=== PATIENT | female | born 1970 | race Caucasian/White ===

== ENCOUNTER 2020-01-01 12:14 | Emergency (ER) | payer OTHER, SELFPAY ==
--- NOTE | ~2020-01-01 | CT_ITS ---
EXAMINATION: CT brain wo con DATE: 01/01/2020 13:24 INDICATION: Head injury. Headache. TECHNIQUE: Computed tomography (CT) of the head was performed without intravenous contrast. The mA wa s adjusted according to patient size. Iterative reconstruction technique was employed. The dose-lengt h product was 605.33 mGy-cm. COMPARISON: Head CT 05/10/2010 FINDINGS: There is no intracranial hemorrhage, acute infarction, or abnormal intracranial mass lesion . The ventricles are normal in size. The paranasal sinuses are clear. The orbits are normal. The mast oid air cells are normal. IMPRESSION: 1. Normal brain. Reviewed, dictated and finalized at location A. IMPRESSION: 1. Normal brain.
--- NOTE | ~2020-01-01 | CT_ITS ---
EXAMINATION: CT cervical spine wo con DATE: 01/01/2020 13:25 INDICATION: Head injury. Neck pain. TECHNIQUE: Computed tomography (CT) of the cervical spine was performed without intravenous contrast. Automated exposure control and iterative reconstruction technique were employed. The dose-length pro duct was 371.73 mGy-cm. COMPARISON: None FINDINGS: There is hypolordosis of cervical spine. Vertebral body heights are normal. There are hess es of anterior fusion procedure from C5 to C7 with discectomies and healed interbody bone graft. Ther e is mildly decreased disc height at C2-C3, moderately decreased disc height at C3-C4, and severely d ecreased disc height at C4-C5. The osseous central spinal canal is developmentally small from C3 to C 7. The following disc levels are specifically discussed: C2-C3: There is mild bilateral uncovertebral joint osteoarthritis. There is mild right facet joint os teoarthritis. There is ankylosis of left facet joint with moderate hypertrophy. There is mild left ne ural foraminal stenosis. There is no central canal stenosis. C3-C4: There is moderate and severe left uncovertebral joint osteoarthritis. There is moderate right and mild left facet joint osteoarthritis. There is mild bilateral neural foraminal stenosis. There is mild central canal stenosis. C4-C5: There is severe bilateral uncovertebral joint osteoarthritis. There is moderate bilateral face t joint osteoarthritis. There is moderate bilateral neural foraminal stenosis. There is mild central canal stenosis. C5-C6: There is no uncovertebral joint hypertrophy. There is ankylosis of the facet joints without hy pertrophy. There is no neural foraminal stenosis. There is mild central canal stenosis. C6-C7: There is no uncovertebral joint hypertrophy. There is ankylosis of the facet joints without hy pertrophy. There is no neural foraminal stenosis. There is mild central canal stenosis. C7-T1: There is mild bilateral uncovertebral joint osteoarthritis. There is severe bilateral facet adeel int osteoarthritis. There is mild left neural foraminal stenosis. There is no central canal stenosis. IMPRESSION: 1. No fracture. 2. Severe cervical spondylosis. 3. Anterior fusion procedure from C5 to C7. Reviewed, dictated and finalized at location A.
[2020-01-01 12:21] VITALS: BP 140/73; PULSE 89; RESP 18; TEMP 36.1; O2SAT 94
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
[2020-01-01] MEDS: IBUPROFEN 600 MG TABLET PO (13:31)
[2020-01-01 14:25] VITALS: BP 128/81; PULSE 68; RESP 18; TEMP 36.5; O2SAT 100
== END 2020-01-01 14:27 | disposition home or self-care (01) ==
PROVIDERS: Emergency Provider Emergency Medicine; PCP Family Medicine
DX: S09.90XA Unspecified injury of head, initial encounter (principal); M06.9 Rheumatoid arthritis, unspecified; M47.812 Spondylosis without myelopathy or radiculopathy, cervical region; Z98.1 Arthrodesis status; W18.39XA Other fall on same level, initial encounter
CPT/HCPCS: 70450; 72125; 99284; A9270

== ENCOUNTER → 2021-05-25 00:44 | Outpatient (CLI) | payer OTHER, SELFPAY ==
[2021-05-25 17:06] LABS: SARS-CoV-2 RNA PCR Negative
== END ==
PROVIDERS: PCP Family Medicine; Visit Provider Internal Medicine Gastroenterology
DX: Z01.812 Encounter for preprocedural laboratory examination (principal); Z20.822 Contact with and (suspected) exposure to COVID-19
CPT/HCPCS: C9803; U0003; U0005

== ENCOUNTER 2021-05-28 00:17 | Day surgery (SDC) | payer OTHER, SELFPAY ==
[2021-05-14 13:28] VITALS: BMI 33.5
[2021-05-28 07:23] VITALS: BMI 32.8
[2021-05-28 07:26] VITALS: BP 107/84; PULSE 80; RESP 18; TEMP 35.4; O2SAT 100
[2021-05-28] MEDS: LACTATED RINGERS 1,000 ML 150 ML IV CONT (07:30)
--- NOTE | 2021-05-28 07:54 | WPDANESEPPF ---
Anes - Initial Pre Proc Eval Procedure: Operation Date: 05/28/21 08:30 Proposed Procedures p Screening Colonoscopy - Freeman Dumont MD Date/Time: 05/28/21 07:54 Surgeon: Freeman Dumont MD Pre Op Diagnosis: family hx colon ca, hx of colon polyps Patient Data Age: 51 Gender: F Height: 1.7 m Weight: 95 kg Last Vital Signs Temp 35.4 C L 05/28/21 07:26 Pulse 80 05/28/21 07:26 Resp 18 05/28/21 07:26 BP 107/84 05/28/21 07:26 Pulse Ox 100 05/28/21 07:26 Allergies Allergy/AdvReac Type Severity Reaction Status Date / Time No Known Allergies Allergy Mild Verified 05/28/21 07:20 Home Medications Medication Instructions Recorded Confirmed Type celecoxib 200 mg PO DAILY 05/28/21 05/28/21 History folic acid 1 mg PO DAILY 05/28/21 05/28/21 History Patient hx anesthesia problems: none Family hx anesthesia problems: none PMFSH Past Medical History Medical History (Updated 05/28/21 @ 07:56 by Freeman Dumont MD) Overeating Positive BRITTNI (antinuclear antibody) Rheumatoid arthritis Surgical History Surgical History (Updated 05/28/21 @ 07:55 by Margarito Cook MD) History of gastric surgery Family History Family History Father Cerebrovascular accident Mother Cerebrovascular accident Sibling Patient's sister is in good health Patient's brother is in good health Social History Social History Smoking packs per day: 0.5 Smoking cigarettes per day: 10.0 Years smoked: 10 Smoking pack-years: 5.00 Smoking status: Former smoker Tobacco type: cigarettes Second hand tobacco smoke exposure: No Alcohol intake: never Alcohol use details: rarely Substance use: never Substance use type: does not use Living arrangements: with family Gender identity (if verbalized by the patient): Female Spiritual care concerns: No Anes - Eval Final PreProcedure Day of Procedure 05/28/21 07:54 Patient weight: obese Heart: regular rate and rhythm Lungs: clear to auscultation Airway: Mallampati scale class II Neurological: alert and oriented Last oral intake: >/= 8 hours ASA classification: II Emergent: no Anesthetic plan: proceed Anesthesia type and monitoring: general GIVS and standard monitoring Informed Consent: The patient's anesthetic plan and its attendant risks and benefits were discussed with the patient/family/POA. Questions were solicited and answers provided to the satisfaction of the patient/family/POA.
--- NOTE | 2021-05-28 07:56 | PM.HPGS ---
History of Present Illness History of Present Illness Consent: Risks, benefits, and alternatives have been discussed and questions answered. Patient agrees to proceed with procedure. Chief complaint: family hx colon ca, hx of colon polyps Narrative: Becca Thurston is a 51 year old female here for colon cancer screening. She has a family history of colon cancer Review of Systems Review of Systems: All systems reviewed & are unremarkable except as noted in HPI and below PMFSH Past Medical History Medical History Overeating Positive BRITTNI (antinuclear antibody) Rheumatoid arthritis Surgical History Surgical History History of gastric surgery Family History Family History Father Cerebrovascular accident Mother Cerebrovascular accident Sibling Patient's sister is in good health Patient's brother is in good health Social History Social History Smoking packs per day: 0.5 Smoking cigarettes per day: 10.0 Years smoked: 10 Smoking pack-years: 5.00 Smoking status: Former smoker Tobacco type: cigarettes Second hand tobacco smoke exposure: No Alcohol intake: never Alcohol use details: rarely Substance use: never Substance use type: does not use Living arrangements: with family Gender identity (if verbalized by the patient): Female Spiritual care concerns: No Meds Home Medications and Allergies Home Medications Medication Instructions Recorded Confirmed Type celecoxib 200 mg PO DAILY 05/28/21 05/28/21 History folic acid 1 mg PO DAILY 05/28/21 05/28/21 History Allergies Allergy/AdvReac Type Severity Reaction Status Date / Time No Known Allergies Allergy Mild Verified 05/28/21 07:20 Vital Signs Vital Signs - 24 hr 05/28/21 07:26 Temperature 35.4 C L Pulse Rate 80 Respiratory Rate 18 Blood Pressure 107/84 Pulse Oximetry 100 Exam Const: General: alert Orientation/consciousness: patient oriented x3 Resp: Auscultation: clear to auscultation bilaterally Cardio: Rhythm: regular rhythm GI: GI Palp: Yes Soft to palpation and No Tenderness to palpation present (GI) Neuro: General: patient oriented x3 Assessment and Plan Assessment and plan (1) Colon cancer screening: Code(s): Z12.11 - Encounter for screening for malignant neoplasm of colon Status: Acute Assessment and Plan: Colonoscopy with possible biopsy or polypectomy or cautery or injection of substances.
[2021-05-28 08:57] VITALS: BP 120/91; PULSE 68; RESP 17; O2SAT 98
[2021-05-28 09:07] VITALS: BP 123/75; PULSE 63; RESP 17; O2SAT 98
[2021-05-28 09:17] VITALS: BP 124/80; PULSE 64; RESP 17; O2SAT 99
== END 2021-05-28 09:22 | disposition home or self-care (01) ==
PROVIDERS: PCP Family Medicine; Visit Provider Internal Medicine Gastroenterology
PROC: 0DJD8ZZ Inspection of Lower Intestinal Tract, Via Natural or Artificial Opening Endoscopic (ICD-10-PCS; CPT 45378; principal; 2021-05-28 08:30)
DX: Z12.11 Encounter for screening for malignant neoplasm of colon (principal); Z80.0 Family history of malignant neoplasm of digestive organs; M06.9 Rheumatoid arthritis, unspecified; Z87.891 Personal history of nicotine dependence; E66.9 Obesity, unspecified; Z68.32 Body mass index [BMI] 32.0-32.9, adult
CPT/HCPCS: 45378; C9803; J2704; J7120; U0003; U0005

== ENCOUNTER → 2023-10-10 07:09 | Outpatient (CLI) | payer OTHER, SELFPAY ==
--- NOTE | ~2023-10-10 | XR_ITS ---
Left Knee Technique: AP, lateral, and sunrise views were obtained. Clinical History: Arthritis Findings: No fracture or dislocation is seen. Osseous alignment is anatomic. Joint spaces are preserv ed without degenerative or erosive change. Soft tissues are unremarkable. No joint effusion is seen. Impression: Unremarkable left knee radiographs. Reviewed, dictated and finalized at location . SION NURSE Impression: Unremarkable left knee radiographs.
== END ==
PROVIDERS: PCP Family Medicine; Visit Provider Internal Medicine
DX: M06.09 Rheumatoid arthritis without rheumatoid factor, multiple sites (principal); G47.00 Insomnia, unspecified; Z79.899 Other long term (current) drug therapy
CPT/HCPCS: 73562

== ENCOUNTER 2023-10-28 13:01 | Outpatient (CLI) | payer OTHER, SELFPAY ==
[2023-10-28 15:02] LABS: Influenza A QL RT-PCR Negative (Negative); Influenza B QL RT-PCR Negative (Negative); RSV RNA, RT-PCR Negative (Negative); SARS-CoV-2 RNA PCR Negative (Negative)
== END 2023-10-28 13:02 | disposition home or self-care (01) ==
LOC: ANHLAB 13:02
PROVIDERS: PCP Family Medicine; Visit Provider Physician Assistant
DX: R05.9 Cough, unspecified (principal); Z20.822 Contact with and (suspected) exposure to COVID-19
CPT/HCPCS: 87637

== ENCOUNTER 2023-10-28 15:51 | Outpatient (CLI) | payer OTHER, SELFPAY ==
--- NOTE | ~2023-10-28 | XR_ITS ---
XR chest 2V DATE: 10/28/2023 16:05 INDICATION: Cough TECHNIQUE: PA and lateral views COMPARISON: None FINDINGS: Normal heart size. No hilar or mediastinal enlargement. No pulmonary infiltrate or consolid ation, pleural effusion or pulmonary vascular congestion or pneumothorax is detected. Postoperative change of the abdomen. IMPRESSION: No active cardiopulmonary disease Reviewed, dictated and finalized at location B. HOLOGICAL ANTHROPOLOGIST
== END 2023-10-28 15:52 | disposition home or self-care (01) ==
PROVIDERS: PCP Family Medicine; Visit Provider Family Medicine
DX: R05.9 Cough, unspecified (principal)
CPT/HCPCS: 71046; 87637

== ENCOUNTER 2024-07-30 16:16 | Outpatient (CLI) | payer OTHER, SELFPAY ==
--- NOTE | ~2024-07-30 | XR_ITS ---
XR sacrum coccyx min 2V Ordering provider: Aurora Greene, [place] History: . Chronic coccyx pain . Comparison: None. FINDINGS: BONES: No acute fracture or dislocation. Postoperative changes in the lower lumbar area. JOINTS: The sacroiliac joint spaces are normal. Bilateral hip osteoarthritic changes. SOFT TISSUES: Soft tissues are normal. IMPRESSION: No definite acute osseous abnormality sacrum and coccyx. If still suspicious CT is advised. Reviewed, dictated and finalized at location A.
== END 2024-07-30 16:17 | disposition home or self-care (01) ==
PROVIDERS: PCP Chiropractor; Visit Provider Chiropractor
DX: M53.3 Sacrococcygeal disorders, not elsewhere classified (principal)
CPT/HCPCS: 72220

== ENCOUNTER 2025-01-13 16:28 | Emergency (ER) | payer OTHER, SELFPAY ==
--- OUTSIDE RECORDS SUMMARY | 2025-01-13 16:31 | XMS_ITS | Clinical Summary ---
Author Organization [facility] Address [address] [place] [address] Care Team Providers Care Instruments Sales Representative Name Role Phone Jackie Barney MD Primary Care Provider Unknown, Notinfile Unavailable Unavailable Allergies Active Allergy Reactions Criticality Noted Date Comments Sutures Other (See comments) Low 06/12/2024 Monocryl sutures Medications pantoprazole DR (PROTONIX) 40 mg EC tablet 05/24/2023 Active methotrexate 2.5 mg tablet 01/11/2024 Activ e PlaqueniL 200 mg tablet 08/24/2023 Active folic acid (FOLVITE) 1 mg tablet 01/11/[address] (VOLTAREN) 75 mg EC tablet 1 tablet (75 mg total) as needed 05/24/2023 Active estradioL (VIVELLE-DOT) 0.0375 mg/24 hrIndications:M enopausal symptoms Place 1 patch on the skin 2 (two) times a week 24 patch 4 03/15/2024 Active progesterone (PROMETRIUM) 100 mg capsuleIndicati ons:Menopausal symptoms Take 1 capsule (100 mg total) by mouth daily 90 capsule 4 03/14/2024 Active estradioL (VIVELLE-DOT) 0.0375 mg/24 hr 06/10/2024 Act carmela folic acid (FOLVITE) 1 mg tablet 04/10/2024 Active methotrexate 2.5 mg tablet 06/10/[address] (PROTONIX) 40 mg EC tablet 03/06/2024 Active progesterone (PROMETRIUM) 100 mg capsule 06/10/2024 Acti ve loratadine (CLARITIN) 10 mg tablet Take 1 tablet (10 mg total) by mouth daily Active cholecalciferol (VITAMIN D-3) 5,000 unit tablet Active omega-3 fatty acids 1,000 mg capsule Take by mouth Active Active Problems Problem Noted Date Diagnosed Date History of rheumatoid arthritis 06/22/2019 Assessment & Plan (06/25/2019 1:50 PM CDT): She requests rheumatology follow-up to discuss alternatives to methotrexate given likelihood of viral recurrence with MTX. - Pt prefers to hold off MTX, wants to see Rheum and ambulatory referral placed. Assessment & Plan (06/24/2019 9:54 AM CDT): Methotrexate on hold She requests rheumatology follow-up to discuss alternatives to methotrexate given likelihood of viral recurrence with MTX. Assessment & Plan (06/23/2019 10:58 AM CDT): Methotrexate on hold Assessment & Plan (06/22/2019 9:44 AM CDT): Recently started on methotrexate by her primary doctor. She tried to get her Zoster vaccination but was turned away since she wasn't 50y.o. - holding methotrexate Assessment & Plan (06/22/2019 5:49 AM CDT): Recently started on methotrexate by her primary doctor. She tried to get her Zoster vaccination but was turned away since she wasn't 50y.o. 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 - Negative CSF cultures, negative HSV/VZV CSF PCR studies. - D/w ID Fellow, stop all ABX, including ACV and d/c home with out pt f/u. -D/w pt at bedside, agreed. Assessment & Plan (06/24/2019 9:53 AM CDT): Await VZV PCR Continue IV acyclovir IV vancomycin + ceftriaxone empirically Assessment & Plan (06/23/2019 10:58 AM CDT): Await HSV/VZV PCR Continue IV acyclovir IV vancomycin + ceftriaxone empirically Assessment & Plan (06/23/2019 2:20 PM CDT): Neck pain, headache, fatigue, chills x ~10d. Developing ulcers on L face. Now with L ear pain + dizziness. Rapid HIV negative, LFTs wnl. LP with gluc 47, prot 46, nucs 704, RBCs 5, 98% lymphs. CSF results are most consistent with viral meningitis, and her facial lesions suggest HSV or VZV. Can consider further infectious workup (ehrlichia, treponemal) if all CSF PCR tests negative. - F/u CSF Cx, HSV, VZV, WNV, enterovirus PCR - Continue acyclovir, ceftriaxone, vancomycin empirically, can d/c once cultures neg and/or PCR neg - Suggest ENT consult for L ear pain Assessment & Plan (06/22/2019 9:44 AM CDT): LP in ED: 704 nucleated cells with 98% lymphocytes, glucose 47, protein 46. Bacterial gram stain CSF negative for bacteria. Rapid HIV negative. Given IV acyclovir 10mg/kg, CTX 2g, and IV Vancomycin 20mg/kg in ED. - HSV and VZV CSF cultures pending. - Continue on acyclovir IV 10mg/kg Q8hrs. - Continue CTX and Vancomycin until bacterial infection ruled out. - Pain control with [place] 5/325 - ID consult placed, appreciate their recs Assessment & Plan (06/22/2019 5:55 AM CDT): LP in ED: 704 nucleated cells with 98% lymphocytes, glucose 47, protein 46. Bacterial gram stain CSF negative for bacteria. Rapid HIV negative. Given IV acyclovir 10mg/kg, CTX 2g, and IV Vancomycin 20mg/kg in ED. - HSV and VZV CSF cultures pending. - Continue on acyclovir IV 10mg/kg Q8hrs. - Continue CTX and Vancomycin until bacterial infection ruled out. - Pain control with [place] 325 - ID consult in AM Encounters Date Type Department Care Team Description 11/20/2024 3:30 PM COTTON CLEANER Office Visit [facility] [address] [place] [address] [address] [place] [phone] Gina Aragon, MIRANDA Pilar cyst of scalp (Primary Dx) 10/22/2024 8:30 AM COTTON CLEANER Office Visit [facility] [address] [place] [address] [address] [place] [phone] Gina Aragon, MIRANDA Pilar cyst of scalp from Last 3 Months Immunizations Immunization Administration Dates Next Due Influenza, Quadrivalent, Rec ombinant, Egg Free, Preservative Free, Intramuscular 08/07/2020 Tdap 05/31/2014 Surgical History Surgery Date Site/Laterality Comments CERVICAL FUSION LAPAROSCOPIC GASTRIC BANDING Was later removed due to complications SYNOVIAL CYST EXCISION TOE SURGERY Right BARIATRIC SURGERY BREAST SURGERY COSMETIC SURGERY SECTION SPINE SURGERY Medical History Medical History Date Comments RA (rheumatoid arthritis) (HCC) Varicella Obesity Autoimmune disease Family History Medical History Relation Name Comments Hearing loss Father Berry Obesity Father Berry Stroke Father Berry Depression Father's Sister 1 Shi Diabetes Father's Sister 1 Shi Obesity Father's Sister 1 Shi Stroke Father's Sister 1 Shi Developmental delay Father's Sister 2 Denetta Arthritis Maternal Grandmother Katina Stroke Maternal Grandmother Katina Alcohol abuse Mother Hina Arthritis Mother Hina Cancer Mother Hina Depression Mother Hina Diabetes Mother Hina Early Mother Hina Hearing loss Mother Hina Hypertension Mother Hina Memory loss Mother Hina Obesity Mother Hina Stroke Mother Hina Cancer Paternal Grandmother Heather Obesity Sister Gianna Relation Name Status Comments Father Berry Father's Sister 1 Shi Father's Sister 2 Denetta Maternal Grandmother Katina Mother Hina Paternal Grandmother Heather Sister Gianna Social History Tobacco Use Types Packs/Day Years Used Date Smoking Tobacco: Never Smokeless Tobacco: Never Alcohol Use Standard Drinks/Week Comments Not Currently 0 (1 standard drink = 0.6 oz pure alcohol) Stopped drinking alcohol since starting methotrexate Comments No Sex and Gender Information Value Date Recorded Sex Assigned at Not on file Legal Sex Female 4:37 PM COTTON CLEANER Gender Identity Female 10/02/2024 11:16 AM COTTON CLEANER Sexual Orientation Not on file Obstetrics History Para Term AB IAB SAB Ectopic Multiple Livin g Live Births 2 2 2 0 0 0 0 0 2 2 Date Outcome GA Total Labor Labor/2nd/3rd Weight Sex Type Anes PTL Jaye A1 A5 Name Clin Term M C-Sec tion Living Term M C-Sec tion Living Last Filed Vital Signs Vital Sign Reading Time Taken Comments Blood Pressure 100/66 03/14/2024 1:29 PM CDT Pulse 77 06/25/2019 1:45 PM CDT Temperature 36.7 C (98.1 F) 06/25/2019 1:45 PM CDT Respiratory Rate 18 06/25/2019 1:45 PM CDT Oxygen Saturation 100% 06/25/2019 1:45 PM CDT Inhaled Oxygen Concentration - - Weight 73.5 kg (162 lb) 03/14/2024 1:29 PM CDT Height 172.7 cm (5' 8 ) 03/14/2024 1:29 PM CDT Body Mass Index 24.63 03/14/2024 1:29 PM CDT Plan of Treatment Health Maintenance Due Date Last Done Comments Colon Cancer Screening-Colonoscopy 1970 Depression Screening 1970 Hepatitis C Screening 1970 Hepatitis B Screening 1988 Pneumococcal vaccine <65 (1 of 2 - PCV) 1989 Zoster Vaccine (1 of 2) 1989 DTaP/Tdap/Td Vaccine (2 - Td or Tdap) 05/31/2024 05/31/2014 Influenza Vaccine (#1) 2024 08/07/2020 Cervical Cancer Screening 03/14/2025 03/14/2024, Regular Well Visit/Exam 18-64 03/14/2025 03/14/2024 Breast Cancer Screening-Mammogram 09/03/2025 09/03/2024, 09/03/2024, 06/07/2023, Additional history exists Procedures Procedure Name Priority Date/Time Associated Diagnosis Comments PAP AND HIGH RISK HPV, REFLEX TO GENOTYPING Routine 03/14/2024 3:05 AM CDT Encounter for well woman exam with routine gynecological exam from Last 3 Months or Most Recently Relevant to Health Maintenance Results * Pap and High Risk HPV and Genotyping (Cytology Component) (03/14/2024 3:05 AM CDT) Endocervical (Pap test) 03/14/2024 3:05 AM CDT 2024 9:03 AM CDT Narrative PATHOLOGY [facility] - 03/20/2024 11:43 AM CDT EPIC results best viewed via link to PDF [address] [address] Tele: Priscilla Escalante MD - Cnc Machine Setter CYTOLOGY REPORT Note to Patients: This report may contain a detailed description of human tissue sent by a health care provider to the laboratory for pathologic evaluation. The content of this report is essential for diagnosis and may provide important critical findings. This information may be unfamiliar to patients to review without a medical professional present. It is advised that the patient review this report in the presence of a health care provider who can answer questions and explain the details. Patient Name: BECCA THURSTON Address: [address] [place] [address] Gender: F : 1970 (Age: 54) Service: Location: [facility] : [id number] Hospital #: [id number] Patient Type: [facility] SPECIMEN Taken: 03/14/2024 Reported: 03/20/2024 Physician(s): Erin Cruz M.D. FINAL DIAGNOSIS: SOURCE OF SPECIMEN - ThinPrep Pap and HPV w/ reflex Genotyping: STATEMENT OF ADEQUACY Source: Cervical/Endocervical - Satisfactory for interpretation - Endocervical /Transformation Zone component present - Case screened using computer assisted imaging technology and manually re- screened by a tearer press clipping. GENERAL CATEGORIZATION: - Negative for intraepithelial lesion or malignancy INTERPRETATION: - Acute Inflammation [facility]/03/20/2024 11:43Reagan Cook M.S., ANNA (ASCP) Report Reviewed and Electronically Signed By Reagan Cook M.S., ANNA (ASCP)Clerical Data Follow A; G0145 DIAGNOSIS COMMENT: Ancillary Testing: HPV Genotype 16 - Not Detected Reference Range: Not Detected HPV Genotype 18 - Not Detected Reference Range: Not Detected HPV High Risk Group (31, 33, 35, 39, 45, 51, 52, 56, 58, 59, 66 and 68) - Not Detected Reference Range: Not Detected This test was performed using the M[employer]IS 4800 CLINICAL DIAGNOSIS AND HISTORY Last Menstrual Period: n/a Contraceptive History: Yes: ablation REPORT IMAGES AND/OR SCANNED DOCUMENTS ONLY VIEWABLE IN PDF FORMAT The Pap test is a screening test used to aid in the detection of cervical cancer and its precursors. It should not be the sole means by which malignant and premalignant lesions are diagnosed. Both false negative and false positive results may occur. It also has poor sensitivity for the detection of endometrial lesions and should not be used to evaluate suspected endometrial abnormalities. For these reasons it is most important to obtain Pap tests at regular intervals, as recommended by your physician or nurse practitioner. us Erin Cruz MD LAB CYTOLOGY ORDERABLE S Final Result Performing Organization Address City/State/[facility] Co de Phone Number PATHOLOGY [facility] Laboratory Receiving [address] [place] [address] from Last 3 Months or Most Recently Relevant to Health Maintenance Insurance [facility] CHOICE PLUS CHOICE PLUS CHOICE PLUS Advance Directives For more information, please contact: [phone] * Full Code (Latest Code Status on File) Date Activated Date Inactivated Comments 06/22/2019 4:42 AM 06/25/2019 6:03 PM Care Teams Instruments Sales Representative Relationship Specialty Start Date End Date Jackie Barney MD [address] [address] PCP - General Family Medicine 06/12/24 Unknown, Notinfile 06/12/24
--- OUTSIDE RECORDS SUMMARY | 2025-01-13 16:31 | XMS_ITS | Referral Summary ---
Author Organization [facility] Address [address] [place] [address] Care Team Providers Care Manager Managed Backup Services Name Role Phone Jackie Barney MD Primary Care Provider Unknown, Notinfile Unavailable Unavailable Encounters Date Type Department Care Team Description 11/20/2024 3:30 PM SUPERVISOR COIN MACHINE Office Visit [facility] [address] [place] [address] [address] [place] [phone] Gina Aragon NP Pilar cyst of scalp (Primary Dx) 10/22/2024 8:30 AM SUPERVISOR COIN MACHINE Office Visit [facility] [address] [place] [address] [address] [place] [phone] Gina Aragon NP Pilar cyst of scalp from Last 3 Months Allergies Active Allergy Reactions Criticality Noted Date [...] infection ruled out. - Pain control with [place] 5/325 - ID consult placed, appreciate their [...] infection ruled out. - Pain control with [place] 5/325 - ID consult in AM Immunizations Immunization Administration Dates Next Due Influenza, Quadrivalent, Rec ombinant, Egg Free, Preservative Free, Intramuscular 08/07/2020 Tdap 05/31/2014 Social History Tobacco Use Types Packs/Day Years Used Date Smoking Tobacco: Never Smokeless Tobacco: Never Alcohol Use Standard Drinks/Week Comments Not Currently 0 (1 standard drink = 0.6 oz pure alcohol) Stopped drinking alcohol since starting methotrexate Comments No Sex and Gender Information Value Date Recorded Sex Assigned at Not on file Legal Sex Female 4:37 PM SUPERVISOR COIN MACHINE Gender Identity Female 10/02/2024 11:16 AM SUPERVISOR COIN MACHINE Sexual Orientation Not on file Last Filed Vital Signs Vital Sign Reading [...] 03/14/2024 1:29 PM CDT Plan of Treatment Not on file Procedures Procedure Name Priority Date/Time Associated Diagnosis [...] CDT 2024 9:03 AM CDT Narrative PATHOLOGY [facility] - 03/20/2024 11:43 AM CDT EPIC results best viewed via link to PDF [address] [address] Tele: Priscilla Escalante MD - Emergency Manager CYTOLOGY REPORT Note to Patients: This report [...] the details. Patient Name: BECCA THURSTON Address: [address] [place] [address] Gender: F : 1970 (Age: 54) Service: Location: [facility] : [id number] Hospital #: [id number] Patient Type: [facility] SPECIMEN Taken: 03/14/2024 Reported: 03/20/2024 Physician(s): Erin Cruz M.D. FINAL DIAGNOSIS: SOURCE OF SPECIMEN - ThinPrep Pap and HPV w/ reflex Genotyping: STATEMENT OF ADEQUACY Source: Cervical/Endocervical - Satisfactory for interpretation - Endocervical /Transformation Zone component present - Case screened using computer assisted imaging technology and manually re- screened by a headliner installer. GENERAL CATEGORIZATION: - Negative for intraepithelial lesion or malignancy INTERPRETATION: - Acute Inflammation [facility]/03/20/2024 11:43Reagan Cook M.S., ANNA (ASCP) Report Reviewed [...] ORDERABLE S Final Result Performing Organization Address City/State/[facility] Co de Phone Number PATHOLOGY [facility] Laboratory Receiving [address] [place] [address] from Last 3 Months or Most Recently Relevant to Health Maintenance Insurance [facility] CHOICE PLUS CHOICE PLUS CHOICE PLUS Advance Directives For more information, please contact: [phone] * Full Code (Latest Code Status on File) Date Activated Date Inactivated Comments 06/22/2019 4:42 AM 06/25/2019 6:03 PM Care Teams Manager Managed Backup Services Relationship Specialty Start Date End Date Jackie Barney MD [address] [address] PCP - General Family Medicine 06/12/24 Unknown, Notinfile 06/12/24
--- OUTSIDE RECORDS SUMMARY | 2025-01-13 16:31 | XMS_ITS | Clinical Summary ---
Author Organization [facility] Address [address] [place] [address] Care Team Providers Care Miter Cutter Name Role Phone Jackie Barney MD Primary Care Provider [phone] Allergies No known active allergies Medications No known medications Social History Tobacco Use Types Packs/Day Years Used Date Smoking Tobacco: Never Smokeless Tobacco: Never Alcohol Use Standard Drinks/Week Comments Not Currently 0 (1 standard drink = 0.6 oz pur e alcohol) Comments No Sex and Gender Information Value Date Recorded Sex Assigned at Not on file Legal Sex Female 6:01 PM CDT Gender Identity Not on file Sexual Orientation Not on file Last Filed Vital Signs Vital Sign Reading Time Taken Comments Blood Pressure 123/75 08/22/2022 2:46 PM CDT Pulse 91 08/22/2022 2:46 PM CDT Temperature 36.8 C (98.2 F) 08/22/2022 2:46 PM CDT Respiratory Rate 18 08/22/2022 2:46 PM CDT Oxygen Saturation 98% 08/22/2022 2:46 PM CDT Inhaled Oxygen Concentration - - Weight 97.5 kg (215 lb) 08/22/2022 1:56 PM CDT Height 170.2 cm (5' 7 ) 08/22/2022 1:56 PM CDT Body Mass Index 33.67 08/22/2022 1:56 PM CDT Plan of Treatment Health Maintenance Due Date Last Done Comments Colorectal Cancer Screening Colonoscopy (10 Years) 1970 Annual Physical 1973 Hepatitis C 1988 Hepatitis B Vaccines (1 of 3 - 19+ 3-dose series) 1989 Cervical Cancer Screening Pap with HPV Testing (Age 30 to 64) Every 5 Years 2000 Zoster Vaccines (1 of 2) 2020 DTaP, Tdap and Td Vaccines (2 - Td or Tdap) 05/31/2024 05/31/2014 COVID-19 Vaccine ( - season) 2024 Mammogram Screening 09/03/2026 09/03/2024, 06/07/2023, 06/03/2022, Additional history exists Cervical Cancer Screening Pap Smear (Age 30 to 64) Every 3 Years 03/14/2027 03/14/2024 Cervical Cancer Screening with HPV 03/14/2027 Influenza Adult Completed 08/27/2024, 08/07/2020 Meningococcal B Vaccine Aged Out No l onger eligible based on patient's age to complete this topic Meningococcal Vaccine Aged Out No nan rae eligible based on patient's age to complete this topic Pneumococcal Vaccine: Pediatrics (0 to 5 Years) and At-Risk Patients (6 to 64 Years) Aged Out No longer eligible based on patient's age to complete this topic RSV Immunizations Under 20 Months Aged Out No longer eligible based on patient's age to complete this topic Procedures Procedure Name Priority Date/Time Associated Diagnosis Comments MG SCREENING IMPLANT W EVERT PILAR DIGI Routine 09/03/2024 5:02 PM LIME FILTER OPERATOR Encounter for screening mammogram for malignant neoplasm of breast from Last 3 Months or Most Recently Relevant to Health Maintenance Results * MG SCREENING IMPLANT W EVERT PILAR DIGI (09/03/2024 5:02 PM LIME FILTER OPERATOR) Anatomical Region Laterality Modality Breast Bilateral Mammography 09/03/2024 5:15 PM LIME FILTER OPERATOR Impressions 09/03/2024 5:19 PM LIME FILTER OPERATOR IMPRESSION: No suspicious mammographic findings. Recommendation: 1. Routine Screening, Bilateral Assessment: ACR BI-RADS 1 - NEGATIVE Ordered By: GRAEME CRUZ Interpreted By: Nolan Warner MD, 09/03/2024 5:15 PM Narrative 09/03/2024 5:19 PM LIME FILTER OPERATOR [address] [address] Examination: Screening bilateral mammogram Exam Date: 09/03/2024 3:34 PM Clinical history: Routine screening. Breast implants. Comparison: 06/07/2023, 06/03/2022 Technique: Digital screening mammography of both breasts was performed. Breast tomosynthesis acquisitions were obtained and reviewed. This study was read with the assistance of a computer-aided detection system. Tissue density: There are scattered areas of fibroglandular density. Findings: Bilateral retropectoral saline implants. No suspicious masses, malignant appearing calcifications, skin thickening or other abnormalities are present. No significant change from the prior exam. Graeme Cruz MD MAMMO Final Result from Last 3 Months or Most Recently Relevant to Health Maintenance Insurance Care Teams Miter Cutter Relationship Specialty Start Date End Date Jackie Barney MD [address] [facility] [address] [facility] [address] [place] [address] PCP - General FAMILY PRACTICE 05/05/21
[2025-01-13 16:39] VITALS: BP 115/63; PULSE 77; RESP 18; TEMP 36.2; O2SAT 100
--- NOTE | 2025-01-13 17:20 | ED.URI ---
HPI - URI/Sore Throat General Stated Complaint: FLU LIKE Time Seen by Provider: 01/13/25 17:20 Source: patient and RN notes reviewed Mode of arrival: ambulatory Limitations: no limitations History of Present Illness HPI Narrative: 54-year-old female presents with concern for cough, nasal congestion, drainage, general malaise. Reports symptoms started 4 days ago. She has taken inxs-uqi-eqvqbna medications in used saline spray without relief. MD elicited complaint: cough Related Data Home Medications ?Medication ?Instructions ?Recorded ?Confirmed ?Last Taken ?Type calcium carbonate (Tums) 200 mg PO TID 03/30/23 10/28/23 Unknown History loratadine 10 mg tablet (Claritin) 10 mg PO DAILY 03/30/23 10/28/23 Unknown History multivitamin 1 tablet PO DAILY 03/30/23 10/28/23 Unknown History omega 2-xbj-fsj-fish oil 60 mg-90 1 cap PO DAILY 03/30/23 10/28/23 Unknown History mg-500 mg capsule (Fish Oil) diclofenac sodium 75 mg 75 mg PO BID 10/28/23 10/28/23 Unknown History tablet,delayed release estradiol 0.01% (0.1 mg/gram) 1 appful vaginal DAILY 10/28/23 10/28/23 Unknown History vaginal cream hydroxychloroquine 200 mg tablet 200 mg PO DAILY 10/28/23 10/28/23 Unknown History methotrexate 2.5 mg/mL oral 2.5 mg PO WEEKLY 10/28/23 10/28/23 Unknown History solution pantoprazole 40 mg tablet,delayed 40 mg PO QAM 10/28/23 10/28/23 Unknown History release Allergies Allergy/AdvReac Type Severity Reaction Status Date / Time No Known Allergies Allergy Mild Verified 10/28/23 16:12 Review of Systems Review of Systems: CONSTITUTIONAL: Reports malaise EYES: Denies visual changes, redness, or discharge. ENT: Reports rhinorrhea, congestion CARDIOVASCULAR: Denies chest pain, palpitations, or edema. RESPIRATORY: Reports cough and chest congestion. Denies dyspnea. GASTROINTESTINAL: Denies abdominal pain, nausea, vomiting, diarrhea SKIN: Denies rash or itching. MUSCULOSKELETAL: Denies myalgia. NEUROLOGIC: Denies headache. All systems reviewed & are unremarkable except as noted in HPI and below PMFSH Past Medical History Medical History Overeating Positive BRITTNI (antinuclear antibody) Rheumatoid arthritis followed by dr. pantera correa rheum Surgical History Surgical History Hx of fusion of cervical spine 2020 Personal history of gastric banding 2008 Family History Family History Father Cerebrovascular accident Mother Cerebrovascular accident Sibling Patient's sister is in good health Patient's brother is in good health Social History Social History Smoking packs per day: 0.5 Smoking cigarettes per day: 10.0 Years smoked: 10 Smoking pack-years: 5.00 Smoking status: Former smoker Tobacco type: cigarettes Second hand tobacco smoke exposure: No Alcohol intake: never Alcohol use details: rarely Substance use: never Substance use type: does not use Living arrangements: with family Occupation/Education: occupation Gender identity (if verbalized by the patient): Female Spiritual care concerns: No Comments At time of signature, agree with nursing past medical, surgical, social and family history. There is no relevant family history pertinent to the presenting complaint Exam Narrative: GENERAL: Nontoxic-appearing, well-nourished, and in no acute distress. HEAD: Normocephalic EYES: PERRLA, conjunctivae clear ENT: Nares clear. Mucous membranes moist. TM pearly healy with strep light reflex bilaterally; no tragal tenderness. Oropharynx not erythematous without lesions. Tonsils not enlarged and without exudate, no drooling, no hoarseness, no trismus, uvula midline. NECK: Supple. No lymphadenopathy CHEST: Clear to auscultation, breath sounds equal. No wheezing, rhonchi, rales, or stridor. No respiratory distress, speaks in full sentences. Cough noted HEART: Regular rate and rhythm. No murmur heard. SKIN: Warm, dry, no rash. NEURO: Alert and oriented x3. PSYCH: Normal mood and affect Course Course Emergency Course: Patient is aware of diagnosis, understands and agrees to treatment plan. Anticipatory guidance given. Patient agrees to follow-up as directed and is aware of reasons to seek care at the emergency department. Portions of this record may have been created with voice recognition software Level of Care: Express Care Visit Vital Signs Vital signs: Vital Signs Temperature 97.2 F L 01/13/25 16:39 Pulse Rate 77 01/13/25 16:39 Respiratory Rate 18 01/13/25 16:39 Blood Pressure 115/63 01/13/25 16:39 Pulse Oximetry 100 01/13/25 16:39 Oxygen Delivery Room Air 01/13/25 16:39 Temperature 97.2 F L 01/13/25 16:39 Pulse Rate 77 01/13/25 16:39 Respiratory Rate 18 01/13/25 16:39 Blood Pressure 115/63 01/13/25 16:39 Pulse Oximetry 100 01/13/25 16:39 Oxygen Delivery Room Air 01/13/25 16:39 Reviewed. MDM - URI/Sore Throat MDM Narrative Medical decision making narrative: Differential diagnosis considered: Riley virus, strep pharyngitis, allergic rhinitis, upper respiratory tract infection, sinusitis, rhinosinusitis, nasopharyngitis. viral pharyngitis, otitis media, otitis externa, pneumonia, bronchitis, viral cough syndrome, viral syndrome, and influenza. Exam findings show no acute concerns or changes; patient is non-toxic appearing and is in no distress. Patient is appropriate for outpatient treatment and follow-up. Lab Data Attestation: I reviewed the patient's lab results. Critical Care Time Critical Care Time Critical Care Time: No Discharge Plan Discharge Clinical Impression: Bronchitis Patient Disposition: Home, Self-Care Condition: Stable Instructions: Acute Bronchitis (ED) Additional Instructions: Viral illness may last between 7-21 days; antibiotics do not cure viral illness and are NOT recommended at this time. Recommend antihistamine such as Benadryl at night time and Zyrtec or Mis during the day Cough syrup may cause drowsiness; avoid driving or take it at night time. Also, recommend symptomatic treatment includes: rest, fluids, and increase humidity of the air at home. Recommend Acetaminophen as directed on the bottle to reduce fever, pain, headache. Avoid smoking/second-hand smoke. Please schedule a follow-up visit with your personal physician for further evaluation and treatment within 3-5days. If your symptoms persist, change or worsen significantly before you can contact your personal physician then please, without delay, go to the emergency department for further evaluation. Patient Language: Gabonese Prescriptions: New promethazine-DM 6.25-15 mg/5 mL syrup 5 ml PO Q4-6H PRN (Reason: cough) Qty: 120 0RF methylprednisolone [Medrol (Quinton)] 4 mg tablets,dose pack See Rx Instructions .ROUTE .COMPLEX Qty: 21 0RF Rx Instructions: orally per package directions No Action calcium carbonate [Tums] 200 mg calcium (500 mg) tablet,chewable 200 mg PO TID loratadine [Claritin] 10 mg tablet 10 mg PO DAILY omega 7-dym-unt-fish oil [Fish Oil] 60-90-500 mg capsule 1 cap PO DAILY multivitamin Tablet 1 tablet PO DAILY hydroxychloroquine 200 mg tablet 200 mg PO DAILY diclofenac sodium 75 mg tablet,delayed release (DR/EC) 75 mg PO BID pantoprazole 40 mg tablet,delayed release (DR/EC) 40 mg PO QAM methotrexate 2.5 mg/mL solution 2.5 mg PO WEEKLY estradiol 0.01 % (0.1 mg/gram) cream 1 appful vaginal DAILY Rx Instructions: for 14 days dexamethasone 4 mg tablet 4 mg PO .COMPLEX Qty: 9 0RF Rx Instructions: 4 mg orally; 1 tab BID x 3 days, then half tab BID x 3 days benzonatate 100 mg capsule 200 mg PO TID PRN (Reason: cough) Qty: 90 0RF azelastine 137 mcg (0.1 %) aerosol,spray 137 mcg intranasal Q12H Qty: 30 0RF Rx Instructions: administer into each nostril fluticasone propionate 50 mcg/actuation spray,suspension 1 spray intranasal DAILY Qty: 16 0RF Rx Instructions: administer into each nostril Follow-up/Referrals: Ector,Jackie Gupta MD [Primary Care Provider] - Time of Disposition: 17:29
[2025-01-13 17:35] LABS: EDCOVIDSCREEN Negative (Negative); EDINFLUASCREEN Negative (Negative); EDINFLUBSCREEN Negative (Negative)
== END 2025-01-13 17:37 | disposition home or self-care (01) ==
PROVIDERS: Emergency Provider Nurse Practitioner; PCP Family Medicine
DX: J40 Bronchitis, not specified as acute or chronic (principal); Z20.822 Contact with and (suspected) exposure to COVID-19; M06.9 Rheumatoid arthritis, unspecified; Z98.84 Bariatric surgery status
CPT/HCPCS: 87426; 87804; 99213; G0463

== ENCOUNTER 2025-01-17 09:28 | Emergency (ER) | payer OTHER, SELFPAY ==
[2025-01-17 09:36] VITALS: BP 112/73; PULSE 81; RESP 18; TEMP 36.9; O2SAT 100
--- NOTE | 2025-01-17 09:42 | ED_ITS ---
HPI - URI/Sore Throat General Chief Complaint: Upper Respiratory Infection Stated Complaint: FLU Like Time Seen by Provider: 01/17/25 09:41 Source: patient, family and RN notes reviewed Mode of arrival: ambulatory Limitations: no limitations History of Present Illness HPI Narrative: 54-year-old female presents to the [facility] complaining of upper respiratory symptoms. She said her symptoms started about 1 week ago. She was seen here at [facility] about 2 days ago was discharged with a Medrol Dosepak and cough syrup. She states her symptoms include sore throat, malaise, fever, congestion, cough. She denies any chest pain or shortness of breath. She reports she has had 2 sinus infections in the last 3 months that were treated with antibiotics. Her previous Influenza and COVID tests were negative 2 days ago. She returns today because she says her symptoms are becoming worse, and then she is not feeling any better since being on previous treatment. She reports she is using Flonase since the nasal rinses at home for her congestion. She said that she was exposed to family member on last Tuesday that was diagnosed with mono. She denies having any close contact with her or sharing any fluids with her. Related Data Home Medications ?Medication ?Instructions ?Recorded ?Confirmed ?Last Taken ?Type calcium carbonate (Tums) 200 mg PO TID 03/30/23 10/28/23 Unknown History loratadine 10 mg tablet (Claritin) 10 mg PO DAILY 03/30/23 10/28/23 Unknown History multivitamin 1 tablet PO DAILY 03/30/23 10/28/23 Unknown History omega 1-fcy-qho-fish oil 60 mg-90 1 cap PO DAILY 03/30/23 10/28/23 Unknown History mg-500 mg capsule (Fish Oil) diclofenac sodium 75 mg 75 mg PO BID 10/28/23 10/28/23 Unknown History tablet,delayed release estradiol 0.01% (0.1 mg/gram) 1 appful vaginal DAILY 10/28/23 10/28/23 Unknown History vaginal cream hydroxychloroquine 200 mg tablet 200 mg PO DAILY 10/28/23 10/28/23 Unknown History methotrexate 2.5 mg/mL oral 2.5 mg PO WEEKLY 10/28/23 10/28/23 Unknown History solution pantoprazole 40 mg tablet,delayed 40 mg PO QAM 10/28/23 10/28/23 Unknown History release Allergies Allergy/AdvReac Type Severity Reaction Status Date / Time No Known Allergies Allergy Mild Verified 01/17/25 09:46 Review of Systems Review of Systems: CONSTITUTIONAL: Denies chills, or sweats. Positive for fevers and malaise. EYES: Denies visual changes, redness, or discharge. ENT: Positive for rhinorrhea, congestion, sore throat, or otalgia. CARDIOVASCULAR: Denies chest pain, palpitations, or edema. RESPIRATORY: Positive for cough, negative for dyspnea GASTROINTESTINAL: Denies abdominal pain, nausea, vomiting, or diarrhea. GENITOURINARY: Denies dysuria or hematuria. SKIN: Denies rash or itching. MUSCULOSKELETAL: Denies back pain, joint pain, or myalgia. NEUROLOGIC: Denies headache, numbness, or weakness. PSYCHIATRIC: Denies anxiety or depression. All other systems reviewed are negative, except as documented in HPI. PMFSH Past Medical History Medical History Positive BRITTNI (antinuclear antibody) Rheumatoid arthritis followed by dr. pantera correa rheum Overeating Surgical History Surgical History Hx of fusion of cervical spine 2020 Personal history of gastric banding 2008 Family History Family History Father Cerebrovascular accident Mother Cerebrovascular accident Sibling Patient's sister is in good health Patient's brother is in good health Social History Social History Smoking packs per day: 0.5 Smoking cigarettes per day: 10.0 Years smoked: 10 Smoking pack-years: 5.00 Smoking status: Former smoker Tobacco type: cigarettes Second hand tobacco smoke exposure: No Alcohol intake: never Alcohol use details: rarely Substance use: never Substance use type: does not use Living arrangements: with family Occupation/Education: occupation Gender identity (if verbalized by the patient): Female Spiritual care concerns: No Comments At the time of my signature, I reviewed and agree with the nursing past medical, surgical, social, and family history. There is no relevant family history pertinent to the patient complaint. Exam Narrative: GENERAL: This is a well-nourished, well-developed patient, in no apparent distress. She is nontoxic appearing. HEAD: normocephalic, atraumatic. EYES: Sclera clear/white. Vision is grossly intact. EARS: External ears normal, auditory canals clear and without drainage, TMs normal without perforation. Hearing grossly intact. NOSE: External nose normal with no obvious nasal discharge, Nares with erythema, no rhinorrhea. THROAT: Mucous membranes moist, posterior pharynx injected, postnasal drip present. NECK: Neck supple, non-tender without lymphadenopathy, masses or thyromegaly. CARDIOVASCULAR: Regular rate and rhythm without murmurs, gallops, or rubs. RESPIRATORY: Clear to auscultation. Breath sounds equal bilaterally. No wheezes, rales, or rhonchi. GASTROINTESTINAL: Abdomen soft, non-tender, nondistended. Bowel sounds are acti ve. SKIN: warm, Dry, intact with no suspicious lesions or rash, good texture and turgor. NEURO: awake, alert, and oriented to person, place and time. There were no obvious focal neurologic abnormalities. EXTREMITIES: No joint tenderness, effusion, or edema noted. BACK: Nontender without deformity. No CVA tenderness. Course Course Level of Care: Express Care Visit Vital Signs Vital signs: Vital Signs Temperature 98.5 F 01/17/25 09:36 Pulse Rate 81 01/17/25 09:36 Respiratory Rate 18 01/17/25 09:36 Blood Pressure 112/73 01/17/25 09:36 Pulse Oximetry 100 01/17/25 09:36 Oxygen Delivery Room Air 01/17/25 09:36 Temperature 98.5 F 01/17/25 09:36 Pulse Rate 81 01/17/25 09:36 Respiratory Rate 18 01/17/25 09:36 Blood Pressure 112/73 01/17/25 09:36 Pulse Oximetry 100 01/17/25 09:36 Oxygen Delivery Room Air 01/17/25 09:36 reviewed MDM - URI/Sore Throat MDM Narrative Medical decision making narrative: Her COVID and flu tests were negative previously. She reports having a sick contact with mono on Tuesday of about 5 days. Today she was tested for strep and mono. Those results were negative. Her strep and tapped for culture and she will be contacted if positive. Given that her symptoms have been persisting ov er a week and her symptoms are progressively worsening will treat her for sinusitis with doxycycline. She reports that she has had 2 other sinus infections within so she was recommended to go follow up with an ENT for further evaluation of her sinuses. Anticipatory guidance given. ED precautions discussed. Lab Data Attestation: I reviewed the patient's lab results. Labs: Lab Results 01/17/25 01/17/25 Range/Units 09:50 10:05 POC Monoscreen Negative (Negative) POC Grp A Strep Screen Negative (Negative) Critical Care Time Critical Care Time Critical Care Time: No Discharge Plan Discharge Clinical Impression: Sinusitis Qualifiers: Sinusitis location: unspecified location Chronicity: acute Recurrence: not specified as recurrent Qualified Code(s): J01.90 - Acute sinusitis, unspecified Patient Disposition: Home, Self-Care Condition: Stable Instructions: Antibiotic Form, Sinusitis (ED) Additional Instructions: Take the antibiotics as directed and complete the course even if you start to feel better. You may use a Neti pot saline rinse 3 times a day. Go to the ER for new or worsening symptoms. Continue to take Tylenol or Motrin for pain. Use a humidifier or vaporizer at night. Drink plenty of water. 8-10 glasses per day. Use flonase 2 times per day for 5 days then as needed Take mucinex 2 times per day and be sure to take with 8oz of water. Follow up with Primary provider if not getting better. Consider seeing an ENT for recurring sinus infections. Patient Language: Maltese Prescriptions: New doxycycline monohydrate 100 mg capsule 100 mg PO BID 7 Days Qty: 14 0RF No Action promethazine-DM 6.25-15 mg/5 mL syrup 5 ml PO Q4-6H PRN (Reason: cough) Qty: 120 0RF methylprednisolone [Medrol (Quinton)] 4 mg tablets,dose pack See Rx Instructions .ROUTE .COMPLEX Qty: 21 0RF Rx Instructions: orally per package directions calcium carbonate [Tums] 200 mg calcium (500 mg) tablet,chewable 200 mg PO TID loratadine [Claritin] 10 mg tablet 10 mg PO DAILY omega 0-cvw-yop-fish oil [Fish Oil] 60-90-500 mg capsule 1 cap PO DAILY multivitamin Tablet 1 tablet PO DAILY hydroxychloroquine 200 mg tablet 200 mg PO DAILY diclofenac sodium 75 mg tablet,delayed release (DR/EC) 75 mg PO BID pantoprazole 40 mg tablet,delayed release (DR/EC) 40 mg PO QAM methotrexate 2.5 mg/mL solution 2.5 mg PO WEEKLY estradiol 0.01 % (0.1 mg/gram) cream 1 appful vaginal DAILY Rx Instructions: for 14 days dexamethasone 4 mg tablet 4 mg PO .COMPLEX Qty: 9 0RF Rx Instructions: 4 mg orally; 1 tab BID x 3 days, then half tab BID x 3 days benzonatate 100 mg capsule 200 mg PO TID PRN (Reason: cough) Qty: 90 0RF azelastine 137 mcg (0.1 %) aerosol,spray 137 mcg intranasal Q12H Qty: 30 0RF Rx Instructions: administer into each nostril fluticasone propionate 50 mcg/actuation spray,suspension 1 spray intranasal DAILY Qty: 16 0RF Rx Instructions: administer into each nostril Follow-up/Referrals: Zia Hogan MD [Non-Staff] - 1 Week Jocelin Betancourt DO [Physician] - 3 Days Time of Disposition: 10:28
[2025-01-17 09:52] LABS: EDSTREPNEGPOS1 Negative (Negative)
--- OUTSIDE RECORDS SUMMARY | 2025-01-17 10:05 | XMS_ITS | Clinical Summary ---
Author Organization [facility] Address [address] [place] [address] Care Team Providers Care Analysis Internship Name Role Phone Jackie Barney MD Primary [...] infection ruled out. - Pain control with Dixie 5/325 - ID consult placed, appreciate their [...] infection ruled out. - Pain control with Dixie 325 - ID consult in AM Encounters Date Type Department Care Team Description 11/20/2024 3:30 PM DAIRY STORE MANAGER Office Visit [facility] [address] [place] [address] [place] [phone] Gina Aragon, MIRANDA Pilar cyst of scalp (Primary Dx) 10/22/2024 8:30 AM DAIRY STORE MANAGER Office Visit [facility] [address] [place] [address] [address] [place] [phone] Gina Aragon, MIRANDA Pilar cyst of scalp [...] on file Legal Sex Female 4:37 PM DAIRY STORE MANAGER Gender Identity Female 10/02/2024 11:16 AM DAIRY STORE MANAGER Sexual Orientation Not on file Obstetrics History [...] CDT 2024 9:03 AM CDT Narrative PATHOLOGY [facility] - 03/20/2024 11:43 AM CDT EPIC results best viewed via link to PDF [address] [address] Tele: Priscilla Escalante MD - Sleeping Car Conductor CYTOLOGY REPORT Note to Patients: This report [...] the details. Patient Name: BECCA THURSTON Address: [address] [place] [address] Gender: F : 1970 (Age: 54) Service: Location: [facility] : [id number] Hospital #: [id number] Patient Type: [facility] SPECIMEN Taken: 03/14/2024 Reported: 03/20/2024 Physician(s): Erin Cruz M.D. FINAL DIAGNOSIS: SOURCE OF SPECIMEN - ThinPrep Pap and HPV w/ reflex Genotyping: STATEMENT OF ADEQUACY Source: Cervical/Endocervical - Satisfactory for interpretation - Endocervical /Transformation Zone component present - Case screened using computer assisted imaging technology and manually re- screened by a tool pusher. GENERAL CATEGORIZATION: - Negative for intraepithelial lesion or malignancy INTERPRETATION: - Acute Inflammation [facility]/03/20/2024 11:43Reagan Cook M.S., ANNA (ASCP) Report Reviewed [...] ORDERABLE S Final Result Performing Organization Address City/State/[facility] Co de Phone Number PATHOLOGY [facility] Laboratory Receiving [address] [place] [address] from Last 3 Months or Most Recently Relevant to Health Maintenance Insurance [facility] [place] [address] [facility] CHOICE PLUS CHOICE PLUS CHOICE PLUS Advance Directives For more information, please contact: [phone] * Full Code (Latest Code Status on File) Date Activated Date Inactivated Comments 06/22/2019 4:42 AM 06/25/2019 6:03 PM Care Teams Analysis Internship Relationship Specialty Start Date End Date Jackie Barney MD [address] [address] PCP - General Family Medicine 06/12/24 Unknown, Notinfile 06/12/24
--- OUTSIDE RECORDS SUMMARY | 2025-01-17 10:05 | XMS_ITS | Referral Summary ---
Author Organization [facility] Address [address] [place] [address] Care Team Providers Care Skeiner Name Role Phone Jackie Barney MD Primary Care Provider Unknown, Notinfile Unavailable Unavailable Encounters Date Type Department Care Team Description 11/20/2024 3:30 PM THEATER TEACHER Office Visit [facility] [address] [place] [address] [address] [place] [phone] Gina Aragon NP Pilar cyst of scalp (Primary Dx) 10/22/2024 8:30 AM THEATER TEACHER Office Visit [facility] [address] [place] [address] [address] [place] [phone] Gina Aragon NP Pilar cyst of scalp [...] infection ruled out. - Pain control with Hidalgo 5/325 - ID consult placed, appreciate their [...] infection ruled out. - Pain control with [place]go 5/325 - ID consult in AM Immunizations [...] on file Legal Sex Female 4:37 PM THEATER TEACHER Gender Identity Female 10/02/2024 11:16 AM THEATER TEACHER Sexual Orientation Not on file Last Filed [...] CDT 2024 9:03 AM CDT Narrative PATHOLOGY [facility] - 03/20/2024 11:43 AM CDT EPIC results best viewed via link to PDF [address] [address] Tele: Priscilla Escalante MD - Group Billing Coordinator CYTOLOGY REPORT Note to Patients: This report [...] the details. Patient Name: BECCA THURSTON Address: [address] [place] [address] Gender: F : 1970 (Age: 54) Service: Location: [facility] : [id number] Hospital #: [id number] Patient Type: [facility] SPECIMEN Taken: 03/14/2024 Reported: 03/20/2024 Physician(s): Erin Cruz M.D. FINAL DIAGNOSIS: SOURCE OF SPECIMEN - ThinPrep Pap and HPV w/ reflex Genotyping: STATEMENT OF ADEQUACY Source: Cervical/Endocervical - Satisfactory for interpretation - Endocervical /Transformation Zone component present - Case screened using computer assisted imaging technology and manually re- screened by a civil engineer's aide. GENERAL CATEGORIZATION: - Negative for intraepithelial lesion or malignancy INTERPRETATION: - Acute Inflammation [facility]/03/20/2024 11:43Reagan Cook M.S., ANNA (ASCP) Report [...] ORDERABLE S Final Result Performing Organization Address City/State/[facility] Co de Phone Number PATHOLOGY [facility] Laboratory Receiving [address] [place] [address] from Last 3 Months or Most Recently Relevant to Health Maintenance Insurance [facility] CHOICE PLUS CHOICE PLUS CHOICE PLUS Advance Directives For more information, please contact: [phone] * Full Code (Latest Code Status on File) Date Activated Date Inactivated Comments 06/22/2019 4:42 AM 06/25/2019 6:03 PM Care Teams Skeiner Relationship Specialty Start Date End Date Jackie Barney MD [address] [address] PCP - General Family Medicine 06/12/24 Unknown, Notinfile 06/12/24
--- OUTSIDE RECORDS SUMMARY | 2025-01-17 10:06 | XMS_ITS | Clinical Summary ---
Author Organization [facility] Address [address] [place] [id number] Care Team Providers Care Core Feeder Name Role Phone Jackie Barney MD Primary Care Provider [phone]- [phone] Allergies No known active allergies Medications No [...] EVERT PILAR DIGI Routine 09/03/2024 5:02 PM [employer]ATION SALES TECHNICIAN Encounter for screening mammogram for malignant neoplasm of breast from Last 3 Months or Most Recently Relevant to Health Maintenance Results * MG SCREENING IMPLANT W EVERT PILAR DIGI (09/03/2024 5:02 PM SECURITY INSTALLATION SALES TECHNICIAN) Anatomical Region Laterality Modality Breast Bilateral Mammography 09/03/2024 5:15 PM [employer] INSTALLATION SALES TECHNICIAN Impressions 09/03/2024 5:19 PM [employer]URITY INSTALLATION SALES TECHNICIAN IMPRESSION: No suspicious mammographic findings. Recommendation: 1. Routine Screening, Bilateral Assessment: ACR BI-RADS 1 - NEGATIVE Ordered By: GRAEME CRUZ Interpreted By: Nolan Warner MD, 09/03/2024 5:15 PM Narrative 09/03/2024 5:19 PM SECUR[employer] INSTALLATION SALES TECHNICIAN [address] [address] Examination: Screening bilateral mammogram Exam Date: 09/03/2024 [...] Relevant to Health Maintenance Insurance Care Teams Core Feeder Relationship Specialty Start Date End Date Jackie Barney MD [address] [facility] [address] [facility] [address] [place] [address] PCP - General FAMILY PRACTICE 05/05/21
[2025-01-17 10:07] LABS: EDMONONEGPOS Negative (Negative)
== END 2025-01-17 10:35 | disposition home or self-care (01) ==
DX: J01.90 Acute sinusitis, unspecified (principal); Z87.891 Personal history of nicotine dependence; M06.9 Rheumatoid arthritis, unspecified; Z98.84 Bariatric surgery status
CPT/HCPCS: 36416; 86308; 87081; 87880; 99213; G0463

== ENCOUNTER 2025-08-02 14:30 | Outpatient (CLI) | payer OTHER, SELFPAY ==
--- NOTE | ~2025-08-02 | XR_ITS ---
EXAMINATION: XR hand BI arthritis min 3V, 08/02/2025 14:35 CDT HISTORY: Rheumatoid arthritis without rheumatoid factor, multiple sit COMPARISON: No comparisons available. Findings: No acute fracture or malalignment. Moderate degenerative changes of the first metacarpal carpal joint, no erosions identified Soft tissues unremarkable. Impression: No acute fracture or malalignment. Reviewed, dictated and finalized at location P. Impression: No acute fracture or malalignment.
== END 2025-08-02 14:31 | disposition home or self-care (01) ==
DX: M06.09 Rheumatoid arthritis without rheumatoid factor, multiple sites (principal); G47.00 Insomnia, unspecified; Z79.899 Other long term (current) drug therapy; M79.641 Pain in right hand
CPT/HCPCS: 73130